=== PATIENT | female | born 2005 | race Two or more races ===

== ENCOUNTER 2023-07-28 12:18 | Emergency (ER) | payer BC, MEDICAID ==
[~2023-07-28] VITALS: Ht 165.1 cm; Wt 63.4 kg
[2023-07-28 13:00] VITALS: BP 110/79; PULSE 64; RESP 18; O2SAT 100
[2023-07-28] MEDS ORDERED: CYCL-611 PO ×3 (15:36→15:56)
[2023-07-28] MEDS ORDERED: IBUP1TAB5 PO ×3 (15:36→15:56)
== END 2023-07-28 16:08 | disposition home or self-care (01) ==
LOC: ER 12:18
DX: S13.9XXA Sprain of joints and ligaments of unspecified parts of neck, initial encounter (principal); S33.5XXA Sprain of ligaments of lumbar spine, initial encounter; V89.2XXA Person injured in unspecified motor-vehicle accident, traffic, initial encounter; Y93.89 Activity, other specified; Y92.89 Other specified places as the place of occurrence of the external cause; Y99.8 Other external cause status
CPT/HCPCS: 72040; 72100